=== PATIENT | male | born 1955 | race Hispanic/Latino ===

== ENCOUNTER → 2018-02-22 | Outpatient (CLI) | payer OTHER | END | disposition home or self-care (01) | LOC: RAH 14:12 | PROVIDERS: ATTEND Family Medicine | DX: M47.896 Other spondylosis, lumbar region (principal); E11.9 Type 2 diabetes mellitus without complications; I10 Essential (primary) hypertension; E78.5 Hyperlipidemia, unspecified | CPT/HCPCS: 72100 ==

== ENCOUNTER 2019-10-18 13:43 | Inpatient (IN) | payer OTHER ==
[~2019-10-18] VITALS: Ht 177.8 cm; Wt 92.8 kg
[2019-10-18] MEDS ORDERED: DILTIAZEM HCL 125 MG/25 ML VIAL IV ONE (14:01)
[2019-10-18] MEDS ORDERED: METOPROLOL TARTRATE 1 MG/ML 5ML VIAL IV ONE (14:01)
[2019-10-18] MEDS ORDERED: SODIUM CHLORIDE 0.9% 100 ML IV ONE (14:02)
[2019-10-18] MEDS ORDERED: ASPIRIN 325 MG TABLET ONE (14:20)
[2019-10-18 14:26] LABS: BASOPHILS % (AUTO) 0.5 % (0.0-5.0); EOSINOPHILS % (AUTO) 1.2 % (0.0-8.0); HEMATOCRIT 39.8 % (42-54); LYMPHOCYTES % (AUTO) 19.9 % (21.0-51.0); MEAN CORPUSCULAR HGB CONC 34.2 g/dL (32.0-36.0); MEAN CORPUSCULAR VOLUME 90.7 fL (79-99); MONOCYTES % (AUTO) 7.2 % (3.0-13.0); NEUTROPHILS % (AUTO) 70.8 % (40.0-77.0); PLATELET COUNT (AUTO) 222 K/uL (130-400); RED BLOOD CELL COUNT(AUTO) 4.39 MIL/uL (4.50-6.20); RED CELL DISTRIBUTION WIDTH 13.1 % (11.0-15.5); WHITE BLOOD COUNT (AUTO) 7.5 K/uL (4.8-10.8)
[2019-10-18 14:36] LABS: CREATININE 1.1 mg/dL (0.5-1.5); POTASSIUM 3.8 mmol/L (3.5-5.1)
[2019-10-18 14:37] LABS: INR 1.03 (0.85-1.15); PARTIAL THROMBOPLASTIN TIME 25.7 SEC (26.3-35.5); PROTHROMBIN TIME 11.1 SEC (9.6-11.6)
[2019-10-18 14:41] LABS: ALBUMIN 3.7 g/dL (3.5-5.0); BILIRUBIN,TOTAL 0.6 mg/dL (0.2-1.0); TOTAL PROTEIN, SERUM 6.9 g/dL (6.0-8.3)
[2019-10-18 14:49] LABS: B-TYPE NATRIURETIC PEPTIDE 329 pg/mL (0-100)
[2019-10-18 14:52] LABS: MAGNESIUM 1.5 mg/dL (1.80-2.40); THYROID STIMULATING HORMONE 1.31 uIU/mL (0.36-3.74)
[2019-10-18] MEDS ORDERED: LACTULOSE 20 GM/30 ML UDCUP PO PRN (17:00)
[2019-10-18] MEDS ORDERED: POTASSIUM CHLORIDE 20MEQ/100ML 100 ML IV PRN (17:00)
[2019-10-18] MEDS ORDERED: NITROGLYCERIN 0.4 MG SL TAB SL PRN (17:00)
[2019-10-18] MEDS ORDERED: ACETAMINOPHEN 325 MG TAB PO PRN (17:00)
[2019-10-18] MEDS ORDERED: LIDOCAINE HCL-MPF 1% 2ML VIAL IV PRN (17:00)
[2019-10-18] MEDS ORDERED: MAGNESIUM 2GM PREMIX 50ML 50 ML IV ONE (18:26)
[2019-10-18] MEDS ORDERED: METOPROLOL TARTRATE 25 MG TAB ONE (18:27)
[2019-10-18] MEDS ORDERED: FUROSEMIDE 10 MG/ML 4ML VIAL IV SCH (18:30)
[2019-10-18] MEDS ORDERED: FAMOTIDINE 20MG TAB 20 MG TAB ONE (20:56)
[2019-10-18] MEDS ORDERED: FUROSEMIDE 10 MG/ML 4ML VIAL ONE (20:56)
[2019-10-18] MEDS ORDERED: METOPROLOL TARTRATE 25 MG TAB PO SCH (21:00)
[2019-10-19] MEDS ORDERED: DILTIAZEM HCL 5 MG/ML 10 ML VIAL IV ONE (05:42)
[2019-10-19] MEDS ORDERED: SODIUM CHLORIDE 0.9% 100 ML IV ONE (05:42)
[2019-10-19 05:54] LABS: BASOPHILS % (AUTO) 0.5 % (0.0-5.0); EOSINOPHILS % (AUTO) 2.4 % (0.0-8.0); HEMATOCRIT 36.9 % (42-54); LYMPHOCYTES % (AUTO) 21.7 % (21.0-51.0); MEAN CORPUSCULAR HEMOGLOBIN 30.4 pg (27.0-33.0); MEAN CORPUSCULAR HGB CONC 33.9 g/dL (32.0-36.0); MEAN CORPUSCULAR VOLUME 89.8 fL (79-99); MONOCYTES % (AUTO) 8.7 % (3.0-13.0); NEUTROPHILS % (AUTO) 66.4 % (40.0-77.0); PLATELET COUNT (AUTO) 196 K/uL (130-400); RED BLOOD CELL COUNT(AUTO) 4.11 MIL/uL (4.50-6.20); RED CELL DISTRIBUTION WIDTH 13.1 % (11.0-15.5); WHITE BLOOD COUNT (AUTO) 6.6 K/uL (4.8-10.8)
[2019-10-19 06:29] LABS: ALBUMIN 3.7 g/dL (3.5-5.0); BILIRUBIN,TOTAL 0.8 mg/dL (0.2-1.0); CREATININE 0.9 mg/dL (0.5-1.5); POTASSIUM 3.2 mmol/L (3.5-5.1); TOTAL PROTEIN, SERUM 6.6 g/dL (6.0-8.3)
[2019-10-19] MEDS ORDERED: ENOXAPARIN SODIUM 40 MG/0.4 ML SYRINGE SQ ONE (08:19)
[2019-10-19] MEDS ORDERED: POTASSIUM CHLORIDE 20MEQ/100ML 100 ML IV ONE ×2 (08:19→17:50)
[2019-10-19] MEDS ORDERED: FAMOTIDINE/PF 20 MG/2 ML VIAL IV ONE (08:20)
[2019-10-19] MEDS ORDERED: LIDOCAINE HCL-MPF 1% 2ML VIAL ONE ×2 (08:27→17:51)
[2019-10-19 08:41] LABS: MAGNESIUM 1.4 mg/dL (1.80-2.40)
[2019-10-19] MEDS: ENOXAPARIN SODIUM 40 MG/0.4 ML SYRINGE SQ SCH (09:00)
[2019-10-19] MEDS: FAMOTIDINE 20MG TAB 20 MG TAB PO SCH ×3 (09:00→22:16)
[2019-10-19] MEDS ORDERED: METOPROLOL TARTRATE 25 MG TAB ONE ×2 (09:34→13:20)
[2019-10-19] MEDS ORDERED: MAGNESIUM 2GM PREMIX 50ML 50 ML IV ONE (09:51)
[2019-10-19] MEDS ORDERED: FUROSEMIDE 10 MG/ML 4ML VIAL ONE (10:54)
[2019-10-19] MEDS ORDERED: REGADENOSON 0.4 MG/5 ML PF SYG IVP SCH (11:30)
--- NOTE | 2019-10-19 14:12 | NUR ---
[facility] CM spoke to pt's spouse Steph [phone] discussed dc plans. Pt is independent prior to admission, lives at home with spouse. Pt has a walker, shower chair, bipap. Denies any other equipments/services. Feels safe to go back home, still drives, spouse able to assist with transportation and needs as necessary. DC plan to home once stable. CM to cont to follow up. Addendum: 10/19/19 at 1413 by SHANIA GATICA LVN CM Amended: Links added.
[2019-10-19 18:15] VITALS: BP 131/96
[2019-10-19 19:35] VITALS: BP 118/78
[2019-10-19] MEDS: FUROSEMIDE 10 MG/ML 2ML VIAL IV SCH (22:17)
[2019-10-19] MEDS ORDERED: SODIUM CHLORIDE 0.9% 500ML 500 ML IV ONE (22:24)
[2019-10-19 23:33] VITALS: BP 133/81
[2019-10-20 03:54] VITALS: BP 124/79
[2019-10-20 04:07] LABS: BASOPHILS % (AUTO) 0.3 % (0.0-5.0); EOSINOPHILS % (AUTO) 2.1 % (0.0-8.0); HEMATOCRIT 38.6 % (42-54); LYMPHOCYTES % (AUTO) 28.7 % (21.0-51.0); MEAN CORPUSCULAR HGB CONC 34.7 g/dL (32.0-36.0); MEAN CORPUSCULAR VOLUME 89.4 fL (79-99); NEUTROPHILS % (AUTO) 60.5 % (40.0-77.0); PLATELET COUNT (AUTO) 204 K/uL (130-400); RED BLOOD CELL COUNT(AUTO) 4.32 MIL/uL (4.50-6.20); RED CELL DISTRIBUTION WIDTH 12.9 % (11.0-15.5); WHITE BLOOD COUNT (AUTO) 7.1 K/uL (4.8-10.8)
[2019-10-20 04:49] LABS: ALBUMIN 3.7 g/dL (3.5-5.0); BILIRUBIN,TOTAL 0.9 mg/dL (0.2-1.0); CREATININE 1.1 mg/dL (0.5-1.5); MAGNESIUM 1.6 mg/dL (1.80-2.40); POTASSIUM 3.8 mmol/L (3.5-5.1); THYROID STIMULATING HORMONE 2.91 uIU/mL (0.36-3.74)
[2019-10-20] MEDS ORDERED: METOPROLOL TARTRATE 25 MG TAB PO SCH (05:00)
[2019-10-20 05:20] LABS: T4 (THYROXINE) 8.5 ug/dL (4.7-13.3)
[2019-10-20] MEDS: MAGNESIUM 2GM PREMIX 50ML 50 ML IV PRN (05:21)
[2019-10-20] MEDS ORDERED: HYDR12.54 PO (06:04)
[2019-10-20] MEDS ORDERED: PIOG30TA70 PO (06:04)
[2019-10-20] MEDS ORDERED: AMLO5TAB4 PO (06:04)
[2019-10-20] MEDS ORDERED: METF-444 PO (06:04)
[2019-10-20] MEDS ORDERED: MULT-1258 PO (06:04)
[2019-10-20] MEDS ORDERED: ASCO500C18 PO (06:04)
[2019-10-20] MEDS ORDERED: FISH1CAP20 PO (06:04)
[2019-10-20] MEDS ORDERED: MILK1CAP3 PO (06:04)
[2019-10-20] MEDS ORDERED: LISI10TA7 PO (06:04)
[2019-10-20] MEDS ORDERED: ATOR10TA69 PO (06:04)
[2019-10-20 06:19] LABS: HEMOGLOBIN A1C 6.8 % (4.0-6.0)
--- NOTE | 2019-10-20 06:38 | NUR ---
PATIENT UPDATE Patient slept well the whole night , no complaints of chest pain, no shortness of breath. Cardizem drip weaned off, heart rate bet 60's to 70's, afib at a controlled rate. Noted that his heart rate tends to go up to the 130's to 140's only when he starts walking to the restroom then back to the 80's when he gets back to bed. Potassium was 3.2, covered with 2 bags of the 20meq kcl ivpb, up to 3.8 this am. Magnesium at 1.60, 2 gms of MgSo4 started to run over 2 hrs. Pt diuresing well with the lasix, swelling on both legs much improved. SCD's on for vte protocol. Pt also on lovenox, noted a big bruised area in his abdomen from a lovenox shot given in ER, marked hematoma noted, will let the md look at it on rounds today.
[2019-10-20] MEDS ORDERED: METOPROLOL TARTRATE 1 MG/ML 5ML VIAL IV SCH (08:30)
--- NOTE | 2019-10-20 08:30 | NUR ---
AFIB RVR 130'S CARDIOLOGY PA IRIS CROW PRESENT. ORDERED METOPROLOL IV SEE EMAR. PATIENT IS BEING MONITORED ON TELEMETRY. DENIES HAVING ANY CHESTPAIN. THE PATIENT HAD GOTTEN UP TO GO TO THE BATHROOM WHEN HR WENT UP TO 130'S.
[2019-10-20] MEDS ORDERED: METOPROLOL TARTRATE 1 MG/ML 5ML VIAL IV ONE (08:31)
[2019-10-20] MEDS: FAMOTIDINE 20MG TAB 20 MG TAB PO SCH ×2 (08:33→21:11)
[2019-10-20] MEDS: ASCORBIC ACID 500 MG TAB PO SCH (08:33)
[2019-10-20] MEDS: FUROSEMIDE 10 MG/ML 2ML VIAL IV SCH (08:33)
[2019-10-20] MEDS: FERROUS SULFATE 325 MG TABLET.DR PO SCH ×2 (08:33→21:11)
[2019-10-20] MEDS: ENOXAPARIN SODIUM 40 MG/0.4 ML SYRINGE SQ SCH (08:34)
[2019-10-20] MEDS ORDERED: ACETAMINOPHEN 325 MG TAB PO PRN (08:45)
[2019-10-20] MEDS ORDERED: METOPROLOL TARTRATE 1 MG/ML 5ML VIAL IV PRN (08:45)
[2019-10-20 08:57] VITALS: BP 153/79
[2019-10-20] MEDS ORDERED: ENOXAPARIN SODIUM 1 MG/KG SQ SCH (09:00)
[2019-10-20] MEDS: ENOXAPARIN SODIUM 100 MG/1 ML SQ SCH ×2 (09:27→21:12)
[2019-10-20] MEDS: ASPIRIN 81MG TAB.CHEW PO SCH (09:28)
[2019-10-20] MEDS: METOPROLOL TARTRATE 50 MG TAB PO SCH ×2 (09:28→21:11)
[2019-10-20 11:38] VITALS: BP 108/58
[2019-10-20] MEDS ORDERED: POTASSIUM CHLORIDE 10% ELIXIR 20 MEQ/15 ML UDCUP PO PRN (12:45)
--- NOTE | 2019-10-20 14:00 | NUR ---
PATIENT UPDATE PATIENT HAS EXPRESSED THAT HE DOES NOT WANT ANY KIND OF INVASIVE PROCEDURE AT THIS TIME, WOULD PREFER TO BE TREATED MEDICALLY WITH MEDICATIONS.
[2019-10-20 17:38] VITALS: BP 111/70
[2019-10-20 20:25] VITALS: BP 128/87
[2019-10-20] MEDS ORDERED: ATORVASTATIN CALCIUM 20 MG TABLET PO SCH (21:00)
[2019-10-20 23:56] VITALS: BP 109/81
[2019-10-21 03:58] VITALS: BP 130/82
[2019-10-21 05:32] LABS: BASOPHILS % (AUTO) 0.4 % (0.0-5.0); EOSINOPHILS % (AUTO) 2.5 % (0.0-8.0); HEMATOCRIT 41.6 % (42-54); LYMPHOCYTES % (AUTO) 21.4 % (21.0-51.0); MEAN CORPUSCULAR HEMOGLOBIN 30.2 pg (27.0-33.0); MEAN CORPUSCULAR HGB CONC 33.7 g/dL (32.0-36.0); MEAN CORPUSCULAR VOLUME 89.8 fL (79-99); MONOCYTES % (AUTO) 8.9 % (3.0-13.0); NEUTROPHILS % (AUTO) 66.5 % (40.0-77.0); PLATELET COUNT (AUTO) 202 K/uL (130-400); RED BLOOD CELL COUNT(AUTO) 4.63 MIL/uL (4.50-6.20); RED CELL DISTRIBUTION WIDTH 12.7 % (11.0-15.5); WHITE BLOOD COUNT (AUTO) 7.2 K/uL (4.8-10.8)
[2019-10-21 05:45] LABS: ALBUMIN 3.4 g/dL (3.5-5.0); BILIRUBIN,TOTAL 0.9 mg/dL (0.2-1.0); CREATININE 1.1 mg/dL (0.5-1.5); MAGNESIUM 1.6 mg/dL (1.80-2.40); POTASSIUM 3.7 mmol/L (3.5-5.1); TOTAL PROTEIN, SERUM 6.5 g/dL (6.0-8.3)
[2019-10-21] MEDS: POTASSIUM CHLORIDE 20 MEQ ERTAB PO PRN ×2 (06:34→08:59)
[2019-10-21] MEDS: MAGNESIUM 2GM PREMIX 50ML 50 ML IV PRN (06:37)
--- NOTE | 2019-10-21 07:04 | NUR ---
PATIENT UPDATE Slept better last night when I suggested putting him on O2 at 2l per nasal cannula. Usually uses a cpap mask at home but refused to use the hosp cpap mask, Stated that he didn't slept well the night before. AFib with varying rates , highest rates bet 110 to 120's, non sustained.
--- NOTE | 2019-10-21 07:40 | NUR ---
NOTE CAME IN WITH A FIB RVR. HE IS ON METOPROLOL AND LOVENOX BID FOR NOW. WAS ON CARDIZEM BEFORE. VS STABLE. HEART RATE FROM NIGHT NURSE WAS IN THE 80'S 90'S BUT STARTED TO CREEP UP TO 100'S 110'S EARLIER THIS AM. PATIENT WAS TOLD BY CARDIOLOGY THAT HE NEEDED A HEART CATH BUT HE TOLD THEM YESTERDAY HE WOULD THINK ABOUT IT AND THIS AM HE SAID HE WANTS TO GO HOME AND THINK ABOUT IT. DENIES ANY CHEST PAIN OR SOB AT THIS TIME.
[2019-10-21 07:58] VITALS: BP 125/75
[2019-10-21] MEDS: FAMOTIDINE 20MG TAB 20 MG TAB PO SCH (08:58)
[2019-10-21] MEDS: ASCORBIC ACID 500 MG TAB PO SCH (08:58)
[2019-10-21] MEDS: METOPROLOL TARTRATE 50 MG TAB PO SCH (08:59)
[2019-10-21] MEDS: ASPIRIN 81MG TAB.CHEW PO SCH (08:59)
[2019-10-21] MEDS: FERROUS SULFATE 325 MG TABLET.DR PO SCH (08:59)
[2019-10-21] MEDS: ENOXAPARIN SODIUM 100 MG/1 ML SQ SCH (09:00)
--- NOTE | 2019-10-21 09:30 | NUR ---
CM NOTE referral faxed to [employer], choice letter obtained. spoke to eric with [employer] and will work on approval. also faxed referral to tashi at [place] and states will work on it. updated pt.
[2019-10-21] MEDS ORDERED: METOPROLOL TARTRATE 50 MG TAB ONE (10:00)
[2019-10-21 11:33] VITALS: BP 123/74
--- NOTE | 2019-10-21 12:00 | NUR ---
NOTE DR MAC AND SELENA KANG HAVE COME TO SEE PATIENT THIS AM AND HE WAS MADE AWARE FROM THEIR STANDPOINT THEY RECOMMEND STARTING ELIQUIS AND INCREASE METOPROLOL TO [address] MAC ASKED TO GIVE ANOTHER 50MG TO THIS AM'S DOSE BUT PATIENT'S HEART RATE DROPPED TO 80 AN HOUR AFTER AM DOSE WAS GIVEN AND CYB708'S AND HE FELT A LITTLE DIZZY. I INFORMED SELENA Buitrago AND WAS TOLD TO HOLD EXTRA DOSE AND MONITOR PATIENT IN CASE HE NEEDED IT LATER.
--- NOTE | 2019-10-21 15:00 | NUR ---
NOTE PATIENT LEFT HOME AGAINST MEDICAL ADVISE. I SPOKE TO SELENA LEWISR PEARL FOR DR ACE AND KYLIE BROWN FOR HOSPITALIST, SAEI BY THE WAY CAME UP HERE FROM [facility] TO SPEAK TO THE PATIENT TO TRY TO CONVINCE HIM BUT SHE WAS UNSUCCESSFUL. I ALSO EXPLAINED TO PATIENT THAT IT WAS VERY RISKY TO LEAVE WITHOUT LIVE VEST THAT WAS ORDERED AND HE ALSO SAID " TO TELL YOU THE TRUTH, I AM NOT EVEN GOING TO WEAR IT". IV ACCESS REMOVED AND AMA PAPER SIGNED.
[2019-10-21 16:00] VITALS: BP 127/95
--- NOTE | 2019-10-21 16:15 | NUR ---
cm note call made to eric with [employer] and states no approvall yet, call made to tashi with [facility] and states there is ap po started for pt. [id number]. and provided it to eric with [employer] states she will try and get approval today, but not sure yet. updated pt, [facility] is probably gonna leave doesnot want to wait, advised to wait until we get approval. [facility] will speak to nurse.
[2019-10-21] MEDS ORDERED: METOPROLOL TARTRATE 50 MG TAB PO SCH (21:00)
[2019-10-21] MEDS ORDERED: APIXABAN 5 MG TABLET PO SCH (21:00)
== END 2019-10-21 17:00 | disposition left against medical advice (07) | DRG 308 ==
LOC: EDH 13:43 → EDHIP 16:54 → 4CH 10-19 18:15
PROVIDERS: ADMIT Hospitalist; ATTEND Hospitalist
DX: I48.19 Other persistent atrial fibrillation (principal); I50.43 Acute on chronic combined systolic (congestive) and diastolic (congestive) heart failure; D68.59 Other primary thrombophilia; I11.0 Hypertensive heart disease with heart failure; I42.9 Cardiomyopathy, unspecified; I25.10 Atherosclerotic heart disease of native coronary artery without angina pectoris; E11.9 Type 2 diabetes mellitus without complications; D64.9 Anemia, unspecified; E66.01 Morbid (severe) obesity due to excess calories; E78.00 Pure hypercholesterolemia, unspecified; E78.5 Hyperlipidemia, unspecified; E83.42 Hypomagnesemia; E87.6 Hypokalemia; I08.1 Rheumatic disorders of both mitral and tricuspid valves; G47.33 Obstructive sleep apnea (adult) (pediatric); Z68.29 Body mass index [BMI] 29.0-29.9, adult; Z79.899 Other long term (current) drug therapy
CPT/HCPCS: 36415; 71045; 78452; 80053; 80061; 82550; 82948; 83036; 83735; 83880; 84436; 84439; 84443; 84480; 84481; 84484; 85025; 85610; 85730; 93005; 93017; 93306; 93356; 96374; 99291; A9500; G0378; J1650; J1940; J2785; J3475; J3480; J3490; J7040

== ENCOUNTER 2019-10-24 12:53 | Inpatient (IN) | payer OTHER ==
[~2019-10-24] VITALS: Ht 177.8 cm; Wt 91.3 kg
[~2019-10-24 12:53] MED LIST: AMLO5TAB4 PO; ASCO500C18 PO; ATOR10TA69 PO; FISH1CAP20 PO; HYDR12.54 PO; LISI10TA7 PO; METF-444 PO; MILK1CAP3 PO; MULT-1258 PO; PIOG30TA70 PO
[2019-10-24] MEDS ORDERED: ASPIRIN 325 MG TABLET ONE (13:22)
[2019-10-24] MEDS ORDERED: DILTIAZEM HCL 5 MG/ML 10 ML VIAL IV ONE (13:41)
[2019-10-24] MEDS ORDERED: DILTIAZEM HCL 125 MG/25 ML VIAL IV ONE (13:42)
[2019-10-24 13:44] LABS: BASOPHILS % (AUTO) 0.5 % (0.0-5.0); EOSINOPHILS % (AUTO) 0.8 % (0.0-8.0); HEMATOCRIT 43.9 % (42-54); LYMPHOCYTES % (AUTO) 19.2 % (21.0-51.0); MEAN CORPUSCULAR HEMOGLOBIN 31.2 pg (27.0-33.0); MEAN CORPUSCULAR HGB CONC 35.1 g/dL (32.0-36.0); MONOCYTES % (AUTO) 6.4 % (3.0-13.0); NEUTROPHILS % (AUTO) 72.9 % (40.0-77.0); PLATELET COUNT (AUTO) 281 K/uL (130-400); RED BLOOD CELL COUNT(AUTO) 4.93 MIL/uL (4.50-6.20); RED CELL DISTRIBUTION WIDTH 12.7 % (11.0-15.5); WHITE BLOOD COUNT (AUTO) 8.9 K/uL (4.8-10.8)
[2019-10-24 13:55] LABS: CREATININE 1.1 mg/dL (0.5-1.5)
[2019-10-24 13:59] LABS: BILIRUBIN,TOTAL 0.8 mg/dL (0.2-1.0); TOTAL PROTEIN, SERUM 7.5 g/dL (6.0-8.3)
[2019-10-24 14:03] LABS: B-TYPE NATRIURETIC PEPTIDE 448 pg/mL (0-100)
[2019-10-24 14:04] LABS: INR 0.99 (0.85-1.15); PARTIAL THROMBOPLASTIN TIME 25.6 SEC (26.3-35.5); PROTHROMBIN TIME 10.7 SEC (9.6-11.6)
[2019-10-24] MEDS ORDERED: HEPARIN SODIUM 5000UNIT/ML 1ML VIAL SQ PRN (15:30)
[2019-10-24] MEDS ORDERED: METOPROLOL TARTRATE 1 MG/ML 5ML VIAL IV SCH (15:30)
[2019-10-24] MEDS ORDERED: LACTULOSE 20 GM/30 ML UDCUP PO PRN (18:00)
[2019-10-24] MEDS ORDERED: ACETAMINOPHEN 325 MG TAB PO PRN ×2 (18:00)
[2019-10-24] MEDS ORDERED: ONDANSETRON HCL 4 MG/2 ML VIAL IV PRN (18:00)
[2019-10-24] MEDS ORDERED: METOPROLOL TARTRATE 50 MG TAB ONE (18:24)
[2019-10-24] MEDS ORDERED: HEPARIN 25000 UNITS/250 ML D5W 250 ML IV ONE (19:51)
[2019-10-24] MEDS ORDERED: HEPARIN SODIUM 5000UNIT/ML 1ML VIAL ONE (20:00)
[2019-10-24] MEDS ORDERED: FAMOTIDINE/PF 20 MG/2 ML VIAL IV ONE (20:51)
[2019-10-24] MEDS ORDERED: METOPROLOL TARTRATE 50 MG TAB PO SCH (21:00)
[2019-10-24] MEDS ORDERED: METOPROLOL TARTRATE 25 MG TAB PO SCH (21:00)
[2019-10-24] MEDS: FAMOTIDINE/PF 20 MG/2 ML VIAL IV SCH (21:00)
[2019-10-24] MEDS: INSULIN GLARGINE 100 UNITS/ML 10 ML VIAL SQ SCH (21:00)
[2019-10-24] MEDS: METOPROLOL TARTRATE 50 MG TAB PO SCH (21:00)
--- NOTE | 2019-10-24 23:36 | NUR ---
ADMITTED FROM ED PT ARRIVED ON FLOOR AT THIS TIME. A/A/OX3. NO C/O OF PAIN OR DISCOMFORT. PT RUNNING HEPARIN GTT INITIATED IN ED. VERIFIED RATE WITH Delmis OSBORNE RN. HARBOR MASTER APPLIED- READING AFIB 88. ADMISSION PACKET SIGNED AND PLACED IN CHART.
[2019-10-24 23:40] VITALS: BP 138/79
[2019-10-25 02:41] LABS: BASOPHILS % (AUTO) 0.3 % (0.0-5.0); EOSINOPHILS % (AUTO) 2.1 % (0.0-8.0); HEMATOCRIT 39.1 % (42-54); LYMPHOCYTES % (AUTO) 34.5 % (21.0-51.0); MEAN CORPUSCULAR HEMOGLOBIN 30.8 pg (27.0-33.0); MEAN CORPUSCULAR HGB CONC 34.3 g/dL (32.0-36.0); MEAN CORPUSCULAR VOLUME 89.9 fL (79-99); MONOCYTES % (AUTO) 8.1 % (3.0-13.0); NEUTROPHILS % (AUTO) 54.8 % (40.0-77.0); PLATELET COUNT (AUTO) 202 K/uL (130-400); RED BLOOD CELL COUNT(AUTO) 4.35 MIL/uL (4.50-6.20); RED CELL DISTRIBUTION WIDTH 12.7 % (11.0-15.5); WHITE BLOOD COUNT (AUTO) 6.7 K/uL (4.8-10.8)
[2019-10-25 03:01] LABS: INR 1.1 (0.85-1.15); PROTHROMBIN TIME 11.8 SEC (9.6-11.6)
--- NOTE | 2019-10-25 03:18 | NUR ---
CRITICAL/HEPARIN ADJUSTMENT PER PROTOCOL PTT 90. ADJUSTED RATE PER PROTOCOL. VERIFIED RATE WITH ALEKS BARRETT RN. NEXT PTT DRAW ORDERED IN 6 HOURS.
[2019-10-25 04:00] VITALS: BP 110/55
--- NOTE | 2019-10-25 05:38 | NUR ---
EDUCATIONAL HANDOUTS GIVEN TO PATIENT. PT DENIES ANY QUESTIONS AT THIS TIME. FURTHER EDUCATION REQUIRED.
[2019-10-25 08:35] VITALS: BP 114/69
[2019-10-25 08:44] LABS: INR 1.05 (0.85-1.15); PARTIAL THROMBOPLASTIN TIME 66.2 SEC (26.3-35.5); PROTHROMBIN TIME 11.3 SEC (9.6-11.6)
[2019-10-25] MEDS ORDERED: METOPROLOL TARTRATE 1 MG/ML 5ML VIAL IV ONE (08:52)
[2019-10-25] MEDS: METOPROLOL TARTRATE 50 MG TAB PO SCH ×3 (08:58→20:23)
[2019-10-25] MEDS ORDERED: ENOXAPARIN SODIUM 1 MG/KG SQ SCH (09:00)
[2019-10-25] MEDS: ENOXAPARIN SODIUM 100 MG/1 ML SQ SCH ×2 (09:15→20:47)
[2019-10-25] MEDS: METOPROLOL TARTRATE 1 MG/ML 5ML VIAL IV PRN ×2 (10:37→18:20)
[2019-10-25] MEDS: FAMOTIDINE/PF 20 MG/2 ML VIAL IV SCH ×2 (10:40→20:23)
[2019-10-25 12:40] VITALS: BP 113/85
[2019-10-25 17:59] VITALS: BP 131/74
[2019-10-25 20:00] VITALS: BP 122/71
[2019-10-25] MEDS: INSULIN GLARGINE 100 UNITS/ML 10 ML VIAL SQ SCH (20:40)
[2019-10-26] VITALS (10 sets, daily range): BP systolic 114–133; BP diastolic 68–94
[2019-10-26 03:44] LABS: CREATININE 1.1 mg/dL (0.5-1.5); POTASSIUM 3.3 mmol/L (3.5-5.1)
[2019-10-26] MEDS ORDERED: LIDOCAINE HCL-MPF 1% 2ML VIAL IJ PRN (04:45)
[2019-10-26] MEDS ORDERED: POTASSIUM CHLORIDE 20MEQ/100ML 100 ML IV PRN (04:45)
[2019-10-26] MEDS ORDERED: MAGNESIUM 2GM PREMIX 50ML 50 ML IV SCH (07:00)
--- NOTE | 2019-10-26 07:43 | NUR ---
Massiel CROW PA-C, IN ROOM SPEAKING WITH PT. RE:PLAN OF CARE. QUESTIONS ANSWERED BY Massiel CROW.
[2019-10-26] MEDS: ENOXAPARIN SODIUM 100 MG/1 ML SQ SCH (07:44)
[2019-10-26] MEDS ORDERED: POTASSIUM CHLORIDE 20 MEQ ERTAB PO SCH (07:45)
[2019-10-26] MEDS ORDERED: SODIUM CHLORIDE 0.9% 500ML 500 ML IV SCH (07:54)
[2019-10-26] MEDS: METOPROLOL TARTRATE 50 MG TAB PO SCH (08:51)
[2019-10-26] MEDS: FAMOTIDINE/PF 20 MG/2 ML VIAL IV SCH (08:52)
[2019-10-26] MEDS ORDERED: ASPIRIN 81MG TAB.CHEW PO SCH (09:00)
[2019-10-26] MEDS ORDERED: IOHEXOL 350 MG/ML 100ML INFUS..BTL IV ONE (09:08)
[2019-10-26] MEDS ORDERED: IOHEXOL-350 50ML VIAL IV ONE (09:08)
[2019-10-26] MEDS ORDERED: NITROGLYCERIN 2 MG/VIAL VIAL IV ONE (09:08)
[2019-10-26] MEDS ORDERED: LIDOCAINE HCL 2% 20ML ONE (09:08)
--- NOTE | 2019-10-26 09:24 | NUR ---
DANNY NOTE CHART REVIEWED, ia ATTEMPTED, PT IN SENIOR WEB ENGINEER, CALL TO SONI LISTED ON CHART, NO ANSWER, WILL FOLLOW UP NOTED THAT PATIENT WENT AMA ON LAST ADMIT, THIS VISIT HAS AGREED TO DIAGNOSTICS Addendum: 10/26/19 at 0925 by TEX LANDRUM RN CM Amended: Links added.
[2019-10-26] MEDS ORDERED: MIDAZOLAM HCL 1 MG/ML 2ML VIAL ONE (09:57)
[2019-10-26] MEDS ORDERED: FENTANYL CITRATE PF 50 MCG/1 ML 2ML VIAL ONE (09:57)
--- NOTE | 2019-10-26 10:52 | NUR ---
RETURNED FROM [facility] VIA BED ACCOMPANIED BY Tejas MILLER RN. PT. AAOX3, RESP.'S EVEN AND UNLABORED. DENIES ANY C/O SOB, DENIES ANY CURRENT PAIN. INFORMED ON STRICT BR X3HRS AND RESTRICTIONS PER MD ORDERS, VERBALIZED UNDERSTANDING. RIGHT GROIN WITH DRSG IN PLACE, D/I; AREA SOFT, NO ECCHYMOSIS OR HEMATOMA NOTED. CALL LIGHT WITHIN REACH, VERBALIZED ABILITY TO USE. BED PLACED IN REVERSE [place] POSITION.
--- NOTE | 2019-10-26 11:27 | NUR ---
SPOKE WITH SPOUSE VIA PHONE FOR CM ASSESSMENT PT LIVES WITH [employer]Y[facility], SPOUSE, WHO WILL PROVIDE TRANSPORT AND DOES MOST OF THE DRIVING. PATIENT IS INDEPENDENT OF ADLS, USES NO DME, HOME IS SAFE AND ACCESSIBLE- BUT NO SHOWER CHAIR OR BENCH. PATIENT SEES DR. KEITA AT THE [place] LAST VISIT PT WAS PRESCRIBED A LIFE VEST-SPOUSE STATES PATIENT WORE IT A LITTLE WHILE AND THEN TOOK IT OFF BECAUSE IT WAS NOT COMFORTABLE. DCP IS HOME. CM TO FOLLOW. Addendum: 10/26/19 at 1130 by TEX LANDRUM RN CM Amended: Links added.
--- NOTE | 2019-10-26 12:10 | NUR ---
RECEIVED CALL FROM PT.'S SPOUSE, QUESTIONS ANSWERED AND VERBALIZED UNDERSTANDING.
--- NOTE | 2019-10-26 13:56 | NUR ---
DR. WAGONER IN ROOM WITH PT. FOR CONSULT.
--- NOTE | 2019-10-26 15:18 | NUR ---
RD NOTIFICATION Pt admitted for AFIB. Diet held this AM for procedure. Diet to be resumed. Pt s/p Heart catheterization. Recommend Resume diet order when medically feasible and add Heart Healthy diet modification RD to continue to monitor. Please notify as additional nutrition concerns arise. Thank you. Addendum: 10/26/19 at [address] RD Amended: Links added.
--- NOTE | 2019-10-26 17:53 | NUR ---
DR. BEJARANO IN ROOM SPEAKING WITH PT. RE:DISCHARGE DISPOSITION. PT. WISHES TO BE DISCHARGED HOME.
[2019-10-26] MEDS ORDERED: ASPI-1005 PO (17:54)
[2019-10-26] MEDS ORDERED: METO100T14 PO (17:54)
[2019-10-26] MEDS ORDERED: LISI-617 PO (17:54)
[2019-10-26] MEDS ORDERED: MAGN400T51 PO (17:54)
[2019-10-26] MEDS ORDERED: ATOR20TA65 PO (17:54)
[2019-10-26] MEDS ORDERED: RIVA20TA PO (17:54)
--- NOTE | 2019-10-26 18:35 | NUR ---
HL REMOVED, CATHETER INTACT. DISCHARGE INSTRUCTIONS GIVEN, VERBALIZED UNDERSTANDING.
[2019-10-26] MEDS ORDERED: LISINOPRIL 5 MG TABLET PO SCH (21:00)
[2019-10-26] MEDS ORDERED: ATORVASTATIN CALCIUM 20 MG TABLET PO SCH (21:00)
== END 2019-10-26 19:00 | disposition home or self-care (01) | DRG 287 ==
LOC: EDH 12:53 → EDHIP 18:23 → 4AH 23:24
PROVIDERS: ADMIT Internal Medicine; ATTEND Internal Medicine
PROC: 4A023N7 Measurement of Cardiac Sampling and Pressure, Left Heart, Percutaneous Approach (ICD-10-PCS; principal; 2019-10-24)
PROC: B2111ZZ Fluoroscopy of Multiple Coronary Arteries using Low Osmolar Contrast (ICD-10-PCS; 2019-10-24)
PROC: B2151ZZ Fluoroscopy of Left Heart using Low Osmolar Contrast (ICD-10-PCS; 2019-10-24)
PROC: B3101ZZ Fluoroscopy of Thoracic Aorta using Low Osmolar Contrast (ICD-10-PCS; 2019-10-24)
DX: I11.0 Hypertensive heart disease with heart failure (principal); I48.19 Other persistent atrial fibrillation; D68.69 Other thrombophilia; I50.23 Acute on chronic systolic (congestive) heart failure; E78.5 Hyperlipidemia, unspecified; I25.10 Atherosclerotic heart disease of native coronary artery without angina pectoris; E11.9 Type 2 diabetes mellitus without complications; I08.1 Rheumatic disorders of both mitral and tricuspid valves; E78.00 Pure hypercholesterolemia, unspecified; R53.83 Other fatigue; Z87.891 Personal history of nicotine dependence; Z83.3 Family history of diabetes mellitus
CPT/HCPCS: 36415; 71045; 75625; 80048; 80053; 82550; 82948; 83735; 83880; 84484; 85025; 85610; 85730; 93005; 93458; 93567; 99156; 99157; C1760; C1894; G0378; J1644; J1650; J2250; J3010; J3475; J3490; Q9967

== ENCOUNTER → 2021-01-22 | Outpatient (CLI) | payer OTHER ==
[~2021-01-22] MED LIST changes: -AMLO5TAB4 PO; +ASPI-1005 PO; -ATOR10TA69 PO; +ATOR20TA65 PO; -HYDR12.54 PO; +LISI-809 PO; -LISI10TA7 PO; +MAGN400T51 PO; +METO100T14 PO; -PIOG30TA70 PO; +RIVA20TA PO
== END | disposition home or self-care (01) ==
LOC: SHCH 12:47
PROVIDERS: ATTEND Internal Medicine Cardiovascular Disease
DX: I50.20 Unspecified systolic (congestive) heart failure (principal); R07.9 Chest pain, unspecified; R06.09 Other forms of dyspnea
CPT/HCPCS: 93306; 93356

== ENCOUNTER → 2024-10-12 | Outpatient (CLI) | payer OTHER ==
[2024-10-12] VITALS (9 sets, daily range): PULSE 56–99; RESP 10–19
[~2024-10-12] MED LIST changes: -LISI-809 PO; +LISI5TAB21 PO
[2024-10-13] VITALS (12 sets, daily range): PULSE 52–118; RESP 12–18
== END | disposition home or self-care (01) ==
LOC: SLP 20:37
PROVIDERS: ATTEND Internal Medicine Hospice and Palliative Medicine
DX: G47.33 Obstructive sleep apnea (adult) (pediatric) (principal); R06.83 Snoring; R53.83 Other fatigue; R45.1 Restlessness and agitation; I10 Essential (primary) hypertension; E11.9 Type 2 diabetes mellitus without complications; R35.0 Frequency of micturition; M25.50 Pain in unspecified joint; R51.9 Headache, unspecified; R10.9 Unspecified abdominal pain; R00.0 Tachycardia, unspecified
CPT/HCPCS: 95811

== ENCOUNTER → 2025-05-30 | Outpatient (CLI) | payer OTHER ==
[~2025-05-30] MED LIST changes: +IOHEXOL-350 50ML VIAL IV ONE; +IOHEXOL-350 75 ML VIAL IV ONE
--- NOTE | 2025-05-31 09:14 | HMCIMG ---
EXAM: CT Chest with Intravenous Contrast. CLINICAL HISTORY: Aneurysm of the ascending aorta, without rupture TECHNIQUE: Axial computed tomography images of the chest with intravenous contrast. CONTRAST: With contrast COMPARISON: Study dated 10/24/19. FINDINGS: LUNGS: A small 4 mm calcified pulmonary nodule along the right upper lobe. Mild pleuroparenchymal bands with calcification involving the anterior segment of the left upper lobe. The rest of the lungs appear essentially clear. No pulmonary mass. PLEURAL SPACES: No pneumothorax evident. No pleural effusions. HEART: There is ectasia of the ascending aorta, measuring 4.3 cm. Atheromatous calcific changes along the aorta and coronary arteries. Status post sternotomy and coronary artery bypass. No cardiomegaly. No significant pericardial effusion. LYMPH NODES: No lymphadenopathy is evident. BONES: Degenerative changes of visualized spine. UPPER ABDOMEN: Post-cholecystectomy status. Pneumobilia is visualized. IMPRESSION: Ectasia of the ascending aorta measuring 4.3 cm in diameter. Atherosclerosis and coronary artery disease. Status post sternotomy and coronary artery bypass. No pulmonary infiltrates or pleural effusions. /[place]
== END | disposition home or self-care (01) ==
LOC: RAH 10:34
PROVIDERS: ATTEND Internal Medicine Cardiovascular Disease
DX: I71.21 Aneurysm of the ascending aorta, without rupture (principal); I25.10 Atherosclerotic heart disease of native coronary artery without angina pectoris; M47.814 Spondylosis without myelopathy or radiculopathy, thoracic region; J98.4 Other disorders of lung; Z95.1 Presence of aortocoronary bypass graft; Z98.890 Other specified postprocedural states
CPT/HCPCS: 71260; Q9967